=== PATIENT | female | born 1995 | race Caucasian/White ===

== ENCOUNTER → 2020-11-06 | Outpatient (CLI) | payer OTHER ==
[2020-11-06 17:26] LABS: CA 125 2.4 U/ML (<30.2)
== END ==
LOC: M LAB 11:44
PROVIDERS: ATTEND Nurse Practitioner Adult Health
DX: Z85.43 Personal history of malignant neoplasm of ovary (principal)

== ENCOUNTER → 2021-01-18 | Outpatient (CLI) | payer OTHER ==
[~2021-01-18] MED LIST: VITAD400CA PO
--- NOTE | 2021-01-18 12:25 | PFTRPT ---
Site: [facility], [address] [place], [address] ID: [id number] Name: MICHELLE PURDY Visit Date: 01/18/2021 Second ID: [id number] Referring Doctor: Ajay Crawford M.D. Reviewing Doctor: Brijesh Herr MD Material Assembler: Sarath HUNTER RRT Age: 25 : 1995 Sex: Female Race: Height: 61.00 Inches Weight: 180.00 Lbs BSA: 1.81 Order IDs: [id number] Requested Test(s): <RESP-PFT.PFT B/A> Diagnosis: C56.9 test meet the ATS standards for acceptability and repeatability. Pt was given four puffs of albuterol for post bronchodilator. Review Status: Not Reviewed Pre-Bronch Post-Bronch Pred Actual %Pred Actual %Chng SPIROMETRY FVC (L) 3.46 3.26 94 3.37 3 FEV1 (L) 3.00 2.92 97 3.09 5 FEV1/FVC (%) 87 89 102 92 2 FEF 25% (L/sec) 5.49 5.18 94 6.97 34 FEF 50% (L/sec) 4.63 3.78 81 4.94 30 FEF 75% (L/sec) 2.00 2.24 111 2.69 20 FEF 25-75% (L/sec) 3.56 3.54 99 4.45 25 FEF Max (L/sec) 6.48 7.43 114 6.97 -6 FIVC (L) 3.41 3.31 -2 FIF 50% (L/sec) 4.21 4.66 110 5.18 11 FIF Max (L/sec) 5.64 5.20 -7 MVV (L/min) 105 136 129 Expiratory Time (sec) 6.60 6.38 -3 Back Extrap Vol (L) 0.09 0.11 18 Time To FEFmax (sec) 0.116 0.113 -2 LUNG VOLUMES SVC (L) 3.45 3.37 97 IC (L) 2.12 2.77 130 ERV (L) 1.33 0.61 45 TGV (L) 2.48 2.19 88 RV (Pleth) (L) 1.15 1.58 137 TLC (Pleth) (L) 4.60 4.96 107 RV/TLC (Pleth) (%) 25 32 127 DIFFUSION DLCOunc (ml/min/mmHg) 24.23 22.29 91 DL/VA (ml/min/mmHg/L) 5.27 5.29 100 VA (L) 4.60 4.21 91 BHT (sec) 9.72 IVC (L) 3.29 TLC (SB) (L) 4.36 AIRWAYS RESISTANCE Raw (cmH2O/L/s) 1.86 0.78 42 Gaw (L/s/cmH2O) 1.03 1.33 129 sRaw (cmH2O*s) 4.76 1.66 34 sGaw (1/cmH2O*s) 0.20 0.62 311
== END ==
LOC: M CARPUL 11:35
PROVIDERS: ATTEND Internal Medicine Hematology & Oncology
DX: C56.9 Malignant neoplasm of unspecified ovary (principal)

== ENCOUNTER 2022-01-29 09:57 | Emergency (ER) | payer OTHER ==
[~2022-01-29] VITALS: Ht 154.9 cm; Wt 81.8 kg
[2022-01-29] MEDS ORDERED: SERT-141 PO (10:09)
[2022-01-29 10:41] LABS: BASO # 0.1 10^3/uL (0.0-0.2); BASO % 0.6 % (0.0-1.0); EOS # 0.1 10^3/uL (0.0-0.5); EOS % 1.4 % (0.0-3.0); HEMATOCRIT 39.6 % (36.0-47.0); HEMOGLOBIN 13.3 g/dl (12.0-15.5); LYMPH # 3.5 10^3/uL (1.5-5.0); LYMPH % 35.5 % (24.0-44.0); MEAN CORPUSCULAR HEMOGLOBIN 29.3 pg (27.0-33.0); MEAN CORPUSCULAR HGB CONC 33.6 g/dl (32.0-36.5); MEAN CORPUSCULAR VOLUME 87.2 fl (80.0-96.0); MONO # 0.7 10^3/uL (0.0-0.8); MONO % 6.6 % (2.0-8.0); NEUTROPHILS # 5.5 10^3/uL (1.5-8.5); NEUTROPHILS % 55.6 % (36.0-66.0); PLATELET COUNT, AUTOMATED 326 10^3/uL (150-450); RED BLOOD COUNT 4.54 10^6/uL (4.00-5.40)
[2022-01-29 11:07] LABS: HCG, SERUM QUALITATIVE NEGATIVE (NEGATIVE)
[2022-01-29 11:08] LABS: ALBUMIN 3.9 GM/DL (3.2-5.2); ALT/SGPT 26 U/L (12-78); BILIRUBIN,TOTAL 0.4 MG/DL (0.2-1.0); BLOOD UREA NITROGEN 13 MG/DL (7-18); CALCIUM LEVEL 8.9 MG/DL (8.5-10.1); CARBON DIOXIDE LEVEL 29 MEQ/L (21-32); CHLORIDE LEVEL 107 MEQ/L (98-107); CREATININE FOR GFR 0.71 MG/DL (0.55-1.30); GLOMERULAR FILTRATION RATE > 60.0 (>60); GLUCOSE, FASTING 97 MG/DL (70-100); POTASSIUM SERUM 4.2 MEQ/L (3.5-5.1); SODIUM LEVEL 140 MEQ/L (136-145); TOTAL PROTEIN 7.2 GM/DL (6.4-8.2)
[2022-01-29 11:17] LABS: HEPATITIS B SURFACE ANTIBODY NEGATIVE (POSITIVE)
[2022-01-29 11:27] LABS: HEPATITIS B SURFACE ANTIGEN NEGATIVE (NEGATIVE)
[2022-01-29 11:56] LABS: HEPATITIS C VIRUS ABY INDEX 0.1 INDEX (<0.8); HIV SCREEN CENTAUR EXPOSED NEGATIVE (NEGATIVE)
[2022-01-29 12:41] VITALS: BP 144/85
== END 2022-01-29 12:41 | disposition home or self-care (01) ==
LOC: M ED 09:57
DX: S61.431A Puncture wound without foreign body of right hand, initial encounter (principal); W46.1XXA Contact with contaminated hypodermic needle, initial encounter; Y99.0 Civilian activity done for income or pay; Z77.21 Contact with and (suspected) exposure to potentially hazardous body fluids

== ENCOUNTER → 2022-03-18 | Outpatient (CLI) | payer OTHER ==
[~2022-03-18] MED LIST changes: +SERT-141 PO
[2022-03-18 10:56] LABS: BASO # 0.1 10^3/uL (0.0-0.2); BASO % 0.5 % (0.0-1.0); EOS # 0.2 10^3/uL (0.0-0.5); EOS % 2.1 % (0.0-3.0); HEMATOCRIT 40.1 % (36.0-47.0); HEMOGLOBIN 13.6 g/dl (12.0-15.5); LYMPH # 3.1 10^3/uL (1.5-5.0); LYMPH % 33.9 % (24.0-44.0); MEAN CORPUSCULAR HEMOGLOBIN 29.9 pg (27.0-33.0); MEAN CORPUSCULAR HGB CONC 33.9 g/dl (32.0-36.5); MEAN CORPUSCULAR VOLUME 88.1 fl (80.0-96.0); MONO # 0.7 10^3/uL (0.0-0.8); MONO % 8.1 % (2.0-8.0); NEUTROPHILS % 55.1 % (36.0-66.0); PLATELET COUNT, AUTOMATED 289 10^3/uL (150-450); RED BLOOD COUNT 4.55 10^6/uL (4.00-5.40); WHITE BLOOD COUNT 9.1 10^3/uL (4.0-10.0)
[2022-03-18 11:21] LABS: HEMOGLOBIN A1c 5.3 %
[2022-03-18 11:30] LABS: ALBUMIN 3.6 GM/DL (3.2-5.2); ALT/SGPT 17 U/L (12-78); BILIRUBIN,TOTAL 0.2 MG/DL (0.2-1.0); BLOOD UREA NITROGEN 18 MG/DL (7-18); CALCIUM LEVEL 8.7 MG/DL (8.5-10.1); CARBON DIOXIDE LEVEL 28 MEQ/L (21-32); CHLORIDE LEVEL 108 MEQ/L (98-107); CREATININE FOR GFR 0.66 MG/DL (0.55-1.30); FREE T4 1.15 NG/DL (0.76-1.46); GLOMERULAR FILTRATION RATE > 60.0 (>60); GLUCOSE, FASTING 103 MG/DL (70-100); POTASSIUM SERUM 4.1 MEQ/L (3.5-5.1); SODIUM LEVEL 139 MEQ/L (136-145); TOTAL PROTEIN 7.1 GM/DL (6.4-8.2)
[2022-03-18 11:51] LABS: FOLLICLE STIMULATING HORMONE 8.8 mIU/mL; LUTEINIZING HORMONE 3.3 mIU/mL; TESTOSTERONE 22 NG/DL (14-76)
[2022-03-18 12:20] LABS: CA 125 < 2.0 U/ML (<30.2)
== END ==
LOC: M LAB 10:04
PROVIDERS: ATTEND Dermatology
DX: L83 Acanthosis nigricans (principal); Z85.43 Personal history of malignant neoplasm of ovary

== ENCOUNTER → 2022-05-27 | Outpatient (REF) | LOC: M LABSMTC 09:03 | PROVIDERS: ATTEND Family Medicine | DX: Z11.52 Encounter for screening for COVID-19 (principal) ==

== ENCOUNTER → 2022-12-03 | Outpatient (REF) | LOC: M EMP 08:43 | PROVIDERS: ATTEND Family Medicine | DX: Z11.52 Encounter for screening for COVID-19 (principal) ==